=== PATIENT | female | born 2000 | race Two or more races ===

== ENCOUNTER 2024-10-24 13:33 | Outpatient (AMB) | payer MEDICAID, SELFPAY ==
[2024-10-24 14:01] VITALS: BP 113/74; PULSE 76; RESP 16; TEMP 36.6; O2SAT 98; BMI 31.6
--- NOTE | 2024-10-24 14:01 | OBCLNT_ITS ---
Vital Signs 10/24/24 14:01 Height 1.63 m Height Method Stated Weight 83.688 kg Weight Measurement Method Standing Scale BMI 31.6 BP 113/74 Blood Pressure Source Automatic Cuff Blood Pressure Location Left Upper Arm Position Sitting Respiration 16 Pulse 76 Pulse Source Monitor Temp 97.8 F Temp Source Oral Pulse Oximetry (%) 98 Oxygen Delivery Method Room Air Allergies/Home Meds Allergies & Medications Allergies No Known Allergies Allergy (Verified 10/24/24 14:02) Medication Reconciliation prenat.vits,sonny,pad-lezg-bisji 1 tab PO QDAY 12/10/21 [History Confirmed 10/24/24] vitamin-ferrous fumarate 28 mg iron-folic acid 800 mcg tablet ( Vitamins with Minerals) 1 tab PO QDAY #60 tabs 10/24/24 [Rx] Intake Visit Data Collection New Patient or Established: Established Patient (seen at [facility] within 3 years) Reason for Visit:: INITIAL CARE Seen by Clinical Staff ONLY (RN/MA): No Housing Management Representative Required: No Do You Feel Safe at Home: Yes Authorities Contacted: N/A PCP or OBGYN visit in last 3 months: Yes Hx Now: Yes Are you currently on any form of Control: No Pain Present Currently: No Pain Scale Used: Cheung-Almanza/Numerical Pain scale:: 0 Smoking Status Smoking Status: Never smoker Questionnaires Covid-19 Vaccine Questionnaire Has patient been vacinated for Covid-19 Have you been vacinated for Covid-19: Yes PHQ-9 PHQ-2 Over the last 2 weeks, how often have you been bothered by any of the following problems? 1. Little interest or pleasure in doing things: not at all 2. Feeling down, depressed, or hopeless: not at all Total score: 0 PHQ-9 3. Trouble falling or staying asleep, or sleeping too much: Not at all 4. Feeling tired or having little energy: Not at all 5. Poor appetite or overeating: Not at all 6. Feeling bad about yourself - or that you are a failure or have let yourself or your family down: Not at all 7. Trouble concentrating on things, such as reading the newspaper or watching television: Not at all 8. Moving or speaking so slowly that other people could have noticed? - Or the opposite - being so fidgety or restless that you have been moving around a lot more than usual: not at all 9. Thoughts that you would be better off or of hurting yourself in some way: Not at all Total score: 0 Source: Developed by Drs. Иван Marcum, Keesha Echols, Elijah Kee and colleagues, with an educational koki from [email or web address]. Depression screen completed yes Social History Living Situation History Marital Status: Lives With: Family Housing: Apartment Tobacco History Smoking Status: Never smoker Second Hand Smoke Exposure: No Alcohol History Alcohol Intake: Never Domestic Abuse History Do You Feel Safe at Home: Yes History of Present Illness HPI Narrative 24-year-old 2 para 1 for OBI. Last. July 17, 2024. This gives due date April 16, 2025. Patient is 15 weeks and a day today. Complains of light movement. She is here with her partner and her 1-year-old. Everybody is happy about being again. Denies bleeding or cramping. She reports that nausea and vomiting are fine. The first was a normal at 40 weeks 7 pounds 14 ounces. No problems. Patient denies any social habits. Denies surgeries. Denies any existing medical problems. She does not have any allergies. She denies contact to any sexually transmitted diseases or infections. And she states that she is healthy. OB Initial Visit OB Flowsheet OB Flowsheet Initial Weight: Not Recorded Date -?-?-?-?-?-?-?-?-?-?-?-?- EGA Weight BP Alb Glu CTX Pres Fundal ht FHR Mov Dilation Station Effacement Hx Notes Visit Note 10/24/24 -?-?-?-?-?-?-?-?-?-?-?-?- 14w 1d 83.688 kg 113/74 absent unknown 15 135 active 24-year-old 2 para 1 for OBI. Last. July 17, 2024. Estimated due date April 16, 2025. Denies leaking, denies bleeding, denies cramping. Patient has no OB complaints at this time. OB panel with NI PT, AFP and carrier screen today. Schedule maternal- medicine for ultrasound. Discussed SAB precautions. Continue vitamins. Return in 4 weeks OB check Menstrual History Menstrual reliability: definite Flow: normal Menstrual regularity: regular Monthly: Yes Age at menarche: 12 On control pills at conception: No Associated symptoms (LMP): Reports nausea, fatigue and breast tenderness OB History : 2 Para: 1 # of Living Children: 1 Delivery History 1st : date: 12/23/21 sex: male Gestational age at delivery (weeks): 41 Delivery type: vaginal Delivery complications: NONE History of depression before or after : No Infection History & Risk Evaluation History of STDs: none Genetic Screening & History Genetic Screening/Teratology Counseling - Includes patient, baby's father, or anyone in either family with: 1. Patient's age 35 years or older as of estimated date of delivery: No 2. Thalassemia (Belgian, Swiss, Mediterranean, or Background); MCV less than 80: No 3. Neural Tube Defect (Meningomyelocele, Spina Bifida, or Anencephaly): No 4. Congenital Heart Defect: No 5. Down Syndrome: No 6. Phoenix-Sachs (Ashkenazi Evangelical, Cajun, [place]): No 7. Jeannette Disease (Ashkenazi Evangelical): No 8. Familial Dysautonomia (Ashkenazi Evangelical): No 9. Sickle Cell Disease or Trait (): No 10. Hemophilia or other blood disorders: No 11. Muscular Dystrophy: No 12. Cystic Fibrosis: No 13. Nataliia's Chorea: No 14. Mental Retardation/Autism: No 15. Other inherited genetic or chromosomal disorder: No 16. Maternal Metabolic Disorder (EG,TYPE 1 Diabetes, PKU): No 17. Patient or baby's father had a child with defects not listed above: No 18. Recurrent loss or a stillbirth: No 19. Medications (including supplements, vitamins, herbs or otc drugs)/illicit/recreational drugs/alcohol since last menstrual period: No 20. Any other: No Infection History 1. Live with someone with TB or exposed to TB: No 2. Rash or viral illness since last menstrual period: No 3. Hepatitis B,C: No Other (see comments) Source: [employer] Review of Systems Review of Systems Systems Reviewed: All systems reviewed, normal except as documented Constitutional Constitutional: Reports fatigue Gastrointestinal Gastrointestinal: Reports nausea Endocrine Endocrine: Reports fatigue Exam General Limitations: no limitations General Appearance: alert, in no apparent distress, comfortable, cooperative, healthy appearing, well developed and well groomed Head Head exam: atraumatic, normocephalic and normal inspection Chest Chest inspection: Present normal inspection and symmetric chest wall rise Resp Respiratory exam: Present normal lung sounds bilaterally Abdominal Abdominal exam: Present soft and normal bowel sounds Extremities Extremities exam: Present normal inspection and full ROM Psych Psychiatric exam: Present normal affect and normal mood Office Procedures OB Clinic LOC & Office Proc's Nursing/Assessment Patient Status: Established Patient OB Clinic Nursing Assessment: Medication Reconciliation, Update PMH in EMR and Vital Signs OB Clinic Coordination of Care: Complex Care and Chronic Disease 1-5, Consent,records obtained, informed consent, Education Simp Pt/Fam, 1 Ins Authorization, Lab and Imaging orders, Results/Orders obtained and Staff clarify orders Special Needs: Heart tones Established Patient Charge Established Patient Point Assignment: 150 Established Patient Point Charge: EP Level 4 (120-155) Assessment & Plan Diagnosis / Problem List (1) Encounter for supervision of high risk in second trimester, antepartum: Status: Acute Plan Schedule maternal- medicine for OB sono. vitamins to be started today. OB panel today with NIPT, AFP, carrier screen. Discussed SAB precautions. Increase fluids. Return in 4 weeks OB check Additional Plan Follow Up: 4 Weeks (obc)
== END 2024-10-24 14:16 | disposition home or self-care (01) ==
LOC: HODSOBC 13:33
PROVIDERS: PCP Family Medicine; Referring Provider Family Medicine; Supervising Provider Advanced Practice Midwife; Visit Provider Advanced Practice Midwife
DX: O09.92 Supervision of high risk pregnancy, unspecified, second trimester (principal); Z3A.14 14 weeks gestation of pregnancy
CPT/HCPCS: 99214; G0463

== ENCOUNTER 2024-11-21 15:33 | Outpatient (AMB) | payer MEDICAID, SELFPAY ==
[2024-11-21 15:44] VITALS: BP 121/84; PULSE 111; RESP 16; TEMP 36.8; O2SAT 99; BMI 32.1
--- NOTE | 2024-11-21 15:44 | OBCLNT_ITS ---
Vital Signs 11/21/24 15:44 Height 1.63 m Height Method Stated Weight 85.502 kg Weight Measurement Method Standing Scale BMI 32.1 BP 121/84 Blood Pressure Source Automatic Cuff Blood Pressure Location Left Upper Arm Position Sitting Respiration 16 Pulse 111 H Pulse Source Monitor Temp 98.2 F Temp Source Oral Pulse Oximetry (%) 99 Oxygen Delivery Method Room Air Allergies/Home Meds Allergies & Medications Allergies No Known Allergies Allergy (Verified 11/21/24 15:45) Medication Reconciliation prenat.vits,sonny,[id number]-thunv 1 tab PO QDAY 12/10/21 [History Confirmed 11/21/24] vitamin-ferrous fumarate 28 mg iron-folic acid 800 mcg tablet ( Vitamins with Minerals) 1 tab PO QDAY #60 tabs 10/24/24 [Rx Confirmed 11/21/24] azithromycin 500 mg tablet 1,000 mg (2 x 500 mg) PO QDAY 1 day #2 tabs 11/21/24 [Rx] azithromycin 500 mg tablet 1,000 mg (2 x 500 mg) PO QDAY 1 day #2 tabs 11/21/24 [Rx] Intake Visit Data Collection New Patient or Established: Established Patient (seen at [facility] within 3 years) Reason for Visit:: OBC Seen by Clinical Staff ONLY (RN/MA): No Windows Infrastructure Engineer Required: No Do You Feel Safe at Home: Yes Authorities Contacted: N/A PCP or OBGYN visit in last 3 months: Yes Date of Last PCP or OBGYN visit: 10/24/24 Hx Now: Yes Are you currently on any form of Control: No Pain Present Currently: No Pain Scale Used: Cheung-Almanza/Numerical Pain scale:: 0 Smoking Status Smoking Status: Never smoker Questionnaires Covid-19 Vaccine Questionnaire Has patient been vacinated for Covid-19 Have you been vacinated for Covid-19: Yes PHQ-9 PHQ-2 Over the last 2 weeks, how often have you been bothered by any of the following problems? 1. Little interest or pleasure in doing things: not at all 2. Feeling down, depressed, or hopeless: not at all Total score: 0 PHQ-9 3. Trouble falling or staying asleep, or sleeping too much: Not at all 4. Feeling tired or having little energy: Not at all 5. Poor appetite or overeating: Not at all 6. Feeling bad about yourself - or that you are a failure or have let yourself or your family down: Not at all 7. Trouble concentrating on things, such as reading the newspaper or watching television: Not at all 8. Moving or speaking so slowly that other people could have noticed? - Or the opposite - being so fidgety or restless that you have been moving around a lot more than usual: not at all 9. Thoughts that you would be better off or of hurting yourself in some way: Not at all Total score: 0 If you checked off any problems, how difficult have these problems made it for you to do your work, take care of things at home, or get along with other people?: not difficult at all Source: Developed by Drs. Иван Marcum, Keesha Echols, Elijah Kee and colleagues, with an educational koki from [employer]. Depression screen completed yes Social History Living Situation History Marital Status: Lives With: Family Housing: Apartment Tobacco History Smoking Status: Never smoker Second Hand Smoke Exposure: No Alcohol History Alcohol Intake: Never Domestic Abuse History Do You Feel Safe at Home: Yes Care OB Visit Log OB Flowsheet Initial Weight: Not Recorded Date -?-?-?-?-?-?-?-?-?-?-?-?- EGA Weight BP Alb Glu CTX Pres Fundal ht FHR Mov Dilation Station Effacement Hx Notes Visit Note 10/24/24 -?-?-?-?-?-?-?-?-?-?-?-?- 14w 1d 83.688 kg 113/74 absent unknown 15 135 active 24-year-old 2 para 1 for OBI. Last. July 17, 2024. Estimated due date April 16, 2025. Denies leaking, denies bleeding, denies cramping. Patient has no OB complaints at this time. OB panel with NI PT, AFP and carrier screen today. Schedule maternal- medicine for ultrasound. Discussed SAB precautions. Continue vitamins. Return in 4 weeks OB check 11/21/24 -?-?-?-?-?-?-?-?-?-?-?-?- 18w 1d 85.502 kg 121/84 absent unknown 18 135 active light fm, denies leaking, bleeding, contractions. Monogamous. Positive chlamydia on OB panel. Discussed NIPT with patient. Discussed positive chlamydia with patient and partner. Zithromax 1 g for both patient and partner. No sex x 1 week. Condoms for 2 weeks. Discussed safe sex. MFM appointment pending SELINA Calculator Estimated Delivery Date Method Current WG Current Estimate 04/23/25 LMP (Certain) 18w 1d Notes Visit Date: 11/21/24 Last Updated by: Radha Espinosa CNM 11/21/24 OB panel: GC-/CT+. A+, abs-, rpr;;nr, rubella imm, HBSAG-,HIV-, HC-. , A1: 5.4, NIPT-/boy, CF/SMA- Visit Date: 10/24/24 Last Updated by: Radha Espinosa CNM 24 yo . lmp: 07/17/24. EDC: 04/16/25 Office Procedures OBC Clinic LOC & Office Proc's Nursing/Assessment Patient Status: Established Patient OB Clinic Nursing Assessment: Medication Reconciliation, Update PMH in EMR and Vital Signs OB Clinic Coordination of Care: Education Complex Pt/Fam, Consent,records obtained, informed consent, Lab and Imaging orders, Results/Orders obtained and Staff clarify orders Special Needs: Heart tones Established Patient Charge Established Patient Point Assignment: 115 Established Patient Point Charge: EP Level 3 (80-115) Assessment & Plan Diagnosis / Problem List (1) Encounter for supervision of high risk in second trimester, antepartum: Status: Acute (2) Chlamydia infection affecting : Status: Acute Qualifiers: Trimester: second trimester Qualified Code(s): O98.812 - Other maternal infectious and parasitic diseases complicating , second trimester; A74.9 - Chlamydial infection, unspecified Plan Discussed positive chlamydia results. Zithromax 1 g to patient partner. No sex for 2 weeks. Condoms for 2 weeks. Discussed safe sex practices. I discussed NIPT and labs with patient. MFM appointment is pending. Discussed SAB precautions Additional Plan Follow Up: 4 Weeks (obc)
== END 2024-11-21 15:56 | disposition home or self-care (01) ==
LOC: HODSOBC 15:33
PROVIDERS: Supervising Provider Advanced Practice Midwife; Visit Provider Advanced Practice Midwife
DX: O09.892 Supervision of other high risk pregnancies, second trimester (principal); O98.312 Other infections with a predominantly sexual mode of transmission complicating pregnancy, second trimester; A56.8 Sexually transmitted chlamydial infection of other sites; Z3A.18 18 weeks gestation of pregnancy
CPT/HCPCS: 99213; G0463

== ENCOUNTER 2025-01-24 13:01 | Outpatient (AMB) | payer MEDICAID, SELFPAY ==
[2025-01-24 13:02] VITALS: BP 120/80; PULSE 104; RESP 18; TEMP 36.2; O2SAT 98; BMI 34.8
--- NOTE | 2025-01-24 13:02 | OBCLNT_ITS ---
Vital Signs 01/24/25 13:02 Height 1.63 m Height Method Stated Weight 92.533 kg Weight Measurement Method Standing Scale BMI 34.8 BP 120/80 Blood Pressure Source Automatic Cuff Blood Pressure Location Left Upper Arm Position Sitting Respiration 18 Pulse 104 H Pulse Source Monitor Temp 97.2 F Temp Source Oral Pulse Oximetry (%) 98 Oxygen Delivery Method Room Air Allergies/Home Meds Allergies & Medications Allergies No Known Allergies Allergy (Verified 01/24/25 13:06) Medication Reconciliation prenat.vits,sonny,mgx-[id number]-vurrh 1 tab PO QDAY 12/10/21 [History Confirmed 01/24/25] vitamin-ferrous fumarate 28 mg iron-folic acid 800 mcg tablet ( Vitamins with Minerals) 1 tab PO QDAY #60 tabs 10/24/24 [Rx Confirmed 01/24/25] Immunizations Immunizations Flu Vaccine in the Last 12 Months: No Flu Vaccine Exclusion Criteria: Refused by Patient Care OB Visit Log OB Flowsheet Initial Weight: Not Recorded Date -?-?-?-?-?-?-?-?-?-?-?-?- EGA Weight BP Alb Glu CTX Pres Fundal ht FHR Mov Dilation Station Effacement Hx Notes Visit Note 10/24/24 -?-?-?-?-?-?-?-?-?-?-?-?- 14w 1d 83.688 kg 113/74 absent unknown 15 135 active 24-year-old 2 para 1 for OBI. Last. July 17, 2024. Estimated due date April 16, 2025. Denies leaking, denies bleeding, denies cramping. Patient has no OB complaints at this time. OB panel with NI PT, AFP and carrier screen today. Schedule maternal- medicine for ultrasound. Discussed SAB precautions. Continue vitamins. Return in 4 weeks OB check 11/21/24 -?-?-?-?-?-?-?-?-?-?-?-?- 18w 1d 85.502 kg 121/84 absent unknown 18 135 active light fm, denies leaking, bleeding, contractions. Monogamous. Positive chlamydia on OB panel. Discussed NIPT with patient. Discussed positive chlamydia with patient and partner. Zithromax 1 g for both patient and partner. No sex x 1 week. Condoms for 2 weeks. Discussed safe sex. MFM appointment pending 01/24/25 -?-?-?-?-?-?-?-?-?-?-?-?- 27w 2d 92.533 kg 120/80 absent unknown 27 135 active mfm apt 01/23/25. No labor complaints. Reports movement. Denies leaking or bleeding. No contractions. Ports patient reports that her and her partner were compliant with taking their meds for positive chlamydia and they have not had sex yet New swab today. Ordered third trimester labs. labor precautions. Patient has a follow-up ultrasound with [facility] in February. SELINA Calculator Estimated Delivery Date Method Current WG Current Estimate 04/23/25 LMP (Certain) 27w 2d Notes Visit Date: 11/21/24 Last Updated by: Radha Espinosa CNM 11/21/24 OB panel: GC-/CT+. A+, abs-, rpr;;nr, rubella imm, HBSAG-,HIV-, HC-. 40, A1: 5.4, NIPT-/boy, CF/SMA- Visit Date: 10/24/24 Last Updated by: Radha Espinosa CNM 24 yo . lmp: 07/17/24. EDC: 04/16/25 Office Procedures OBC Clinic LOC & Office Proc's Nursing/Assessment Patient Status: Established Patient OB Clinic Nursing Assessment: Medication Reconciliation, Update PMH in EMR and Vital Signs OB Clinic Coordination of Care: Complex Care and Chronic Disease 1-5, Consent,records obtained, informed consent, Education Simp Pt/Fam, 1 Ins Authorization, Lab and Imaging orders and Staff clarify orders Special Needs: Heart tones Established Patient Charge Established Patient Point Assignment: 145 Established Patient Point Charge: EP Level 4 (120-155) Assessment & Plan Diagnosis / Problem List (1) Chlamydia infection affecting : Status: Acute Qualifiers: Trimester: second trimester Qualified Code(s): O98.812 - Other maternal infectious and parasitic diseases complicating , second trimester; A74.9 - Chlamydial infection, unspecified (2) Encounter for supervision of high risk in second trimester, antepartum: Status: Acute Plan Third trimester labs. New swab for GC and chlamydia test of cure. Continue to practice safe sex. I will treat vaginitis if it is present follow-up with maternal- medicine in February for growth sono and evaluation hydronephrosis in the baby Additional Plan Follow Up: 3 Weeks (obc)
== END 2025-01-24 13:30 | disposition home or self-care (01) ==
LOC: HODSOBC 13:01
PROVIDERS: Supervising Provider Advanced Practice Midwife; Visit Provider Advanced Practice Midwife
DX: O09.892 Supervision of other high risk pregnancies, second trimester (principal); O98.312 Other infections with a predominantly sexual mode of transmission complicating pregnancy, second trimester; A56.8 Sexually transmitted chlamydial infection of other sites
CPT/HCPCS: 99214; G0463